=== PATIENT | male | born 1985 | race African-American/Black ===

== ENCOUNTER 2017-03-20 20:18 | Emergency (ER) | payer SELFPAY ==
[2017-03-20 20:26] VITALS: BP 126/82; PULSE 118; RESP 18; TEMP 99.1; O2SAT 99
--- NOTE | 2017-03-20 21:25 | PD ---
HPI Chief Complaint: Seizure Time Seen by Provider: 21:05 Travel History International Travel<30 days: No Contact w/Intl Traveler<30days: No Traveled to known affect area: No History of Present Illness HPI Patient 31-year-old male presents emergency department for multiple complaints, the patient states he has a history of seizures and anxiety and states he had a seizure earlier today which was coupled very closely with anxiety, he states he supposed to be taking Keppra but has not seen a neurologist in many years and has not been taking it. He also complains of right ankle pain but does not recall any trauma. However the initial reports from this patient was from EMS when he called 9 1 because he was feeling short of breath after smoking a friend cigar. When asked about this the patient states that yes he is feeling some short of breath. Denies any chest pain abdominal pain nausea vomiting diarrhea constipation suicidal ideation or homicidal ideation. Symptoms minimal , right ankle, associated sinus symptoms and context as above PFSH Past Medical History Anxiety: Yes Diminished Hearing: No Myocardial Infarction: Yes (AT AGE 19 YRS. 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) Seizures: Yes (SINCE 5 MONTHS OLD) Social History Alcohol Use: No Tobacco Use: Yes (1 PPD) Substance Use: No (WEED SIX MONTHS AGO) Allergies-Medications (Allergen,Severity, Reaction): Coded Allergies: Fish Containing Products (Unverified Allergy, Intermediate, 03/20/17) levetiracetam (Unverified Allergy, Mild, 03/20/17) onion (Unverified Allergy, Mild, 03/20/17) divalproex sodium (Verified Allergy, Unknown, 03/21/17) Reported Meds & Prescriptions Reported Meds & Active Scripts Active Keppra (Levetiracetam) 500 Mg Tab 500 Mg PO BID Review of Systems Except as stated in HPI: all other systems reviewed are Neg Physical Exam Narrative GENERAL: Well-nourished, well-developed patient. SKIN: Focused skin assessment warm/dry. HEAD: Normocephalic. Atraumatic EYES: No scleral icterus. No injection or drainage. NECK: Supple, trachea midline. No JVD or lymphadenopathy. CARDIOVASCULAR: Regular rate and rhythm without murmurs, gallops, or rubs. RESPIRATORY: Breath sounds equal bilaterally. No accessory muscle use. GASTROINTESTINAL: Abdomen soft, non-tender, nondistended. MUSCULOSKELETAL: No cyanosis, or edema. Minimal tenderness about the medial malleolus on the right ankle, no swelling limiting range of motion, no obvious deformity. The remainder of his extremities are atraumatic. No midline CT or L -spine tenderness NEUROLOGICAL: Cranial nerves II through XII are grossly intact and nonfocal, 5 out of 5 strength in all 4 extremities, no seizure activity seen in the emergency department, BACK: Nontender without obvious deformity. No CVA tenderness. Psychiatric: Flat affect and anxious mood. Denies suicidal homicidal ideation, somewhat withdrawn. Somewhat bizarre thought content process. Certainly not gravely disabled or threat to himself Data Data Last Documented VS Orders Orders Levetiracetam (Keppra) (03/20/17 21:30) Lorazepam (Ativan) (03/20/17 21:30) Chest, Single Ap (03/20/17 ) Ankle, Complete ([id number]) (03/20/17 ) Ed Discharge Order (03/20/17 22:09) MDM Medical Decision Making Medical Screen Exam Complete: Yes Emergency Medical Condition: Yes Differential Diagnosis Anxiety, seizure, ankle pain, shortness of breath Narrative Course Patient given Ativan, Keppra, no seizure activity reviewed in the ER, he appears well and in no obvious distress. We will continue to monitor as he is now a little over sedated but protecting his airway and saturating well. Medically there is no other complaint that warrants further workup at this time. Was observed overnight as mildly somnolent in ER but was given ativan for anxiety. Doing better after a period of observation. No indication for further workup in the emergency department stable for discharge discussed symptomatic management and maternity criteria. Discussed smoking cessation Diagnosis Primary Impression: SOB (shortness of breath) Additional Impression: Recurrent seizures Referrals: Johnny Iyer MD [facility] Levetiracetam (Keppra) 500 Mg Tab 500 MG PO BID for Control Seizures, #60 TAB 0 Refills Prov: Gokul Adames MD 03/20/17 Disposition: 01 DISCHARGE HOME Condition: Stable Gokul Adames MD Mar 20, 2017 21:25
[2017-03-20] MEDS ORDERED: LORazepam 1 MG TAB PO ONE (21:30)
[2017-03-20] MEDS ORDERED: levETIRAcetam 500 MG TAB PO ONE (21:30)
[2017-03-20] MEDS ORDERED: LEVE500 PO (21:52)
--- NOTE | 2017-03-20 22:04 | RADRPT ---
EXAM DATE/TIME: 03/20/2017 21:34 [facility] COMPARISON: No previous studies available for comparison. INDICATIONS : Shortness of breath MEDICAL HISTORY : None. SURGICAL HISTORY : None. ENCOUNTER: Initial ACUITY: 1 day PAIN SCORE: 0/10 LOCATION: Bilateral chest FINDINGS: A single view of the chest demonstrates the lungs to be symmetrically aerated without evidence of mas s, infiltrate or effusion. The cardiomediastinal contours are unremarkable. Degenerative changes and scoliosis of the thoracic spine are noted. CONCLUSION: No acute cardiopulmonary disease. Gokul Ryder MD on March 20, 2017 at 22:01 Board Certified Radiologist. This report was verified electronically.
--- NOTE | 2017-03-20 22:05 | RADRPT ---
EXAM DATE/TIME: 03/20/2017 21:36 [facility] COMPARISON: No previous studies available for comparison. INDICATIONS : Right ankle pain for 1 week MEDICAL HISTORY : None. SURGICAL HISTORY : None. ENCOUNTER: Initial ACUITY: 1 week PAIN SCORE: 5/10 LOCATION: Right entire ankle FINDINGS: Three view exam was performed of the right ankle. The bony structures are in normal alignment. No e vidence of fracture, dislocation, or soft tissue swelling. The ankle mortise is intact. No radiopaq ue foreign bodies are seen. Bony mineralization is normal. CONCLUSION: No acute disease. Gokul Ryder MD on March 20, 2017 at 22:01 Board Certified Radiologist. This report was verified electronically.
[2017-03-21 06:40] VITALS: BP 123/73; PULSE 69; RESP 14; O2SAT 96
== END 2017-03-21 07:25 | disposition home or self-care (01) ==
LOC: NEPE 20:18 → NEPD 03-21 07:25
DX: R06.02 Shortness of breath (principal); G40.909 Epilepsy, unspecified, not intractable, without status epilepticus; F41.9 Anxiety disorder, unspecified; I25.2 Old myocardial infarction; F17.201 Nicotine dependence, unspecified, in remission; Z91.013 Allergy to seafood; Z88.8 Allergy status to other drugs, medicaments and biological substances; Z91.018 Allergy to other foods
CPT/HCPCS: 71045; 73610; 99283